=== PATIENT | female | born 1970 | race Caucasian/White ===

== ENCOUNTER 2019-09-11 06:50 | Emergency (ER) | payer OTHER, SELFPAY ==
[2019-09-11] VITALS (38 sets, daily range): BP systolic 142–163; BP diastolic 69–106; PULSE 46–71; RESP 11–62; TEMP 36.6–36.7; O2SAT 98–100
--- NOTE | 2019-09-11 07:18 | W.ED.GENAD ---
Discharge Plan Disposition Patient Disposition: HOME Discharge Details Chief Complaint: Dizzy/Sync Clinical Impression: Vertigo Primary Care Provider: Jones Tirado ED Provider: Satnam Flody Home Meds and New Rx's Prescriptions: New meclizine 25 mg tablet 25 mg PO TID PRN (Reason: dizziness) Qty: 30 RF: 0 Continued ibuprofen [Advil Liqui-Gel] 200 MG capsule 200 - 400 mg PO Q4H PRN RF: 0 paroxetine HCl [Paxil] 20 mg tablet 20 mg PO DAILY Qty: 90 RF: 4 Discharge Instructions Instructions: Vertigo (ED) Additional Instructions: Please drink plenty of fluids to stay hydrated. Please contact your primary care physician to arrange follow-up. Return to the ER for any worsening or new concerning symptoms. Stand Alone Forms: Physical Therapy Referral, Work Release Referrals: Jones Tirado MD [Primary Care Provider] - Discharge Data Discharge Date/Time-TO BE ENTERED AT DEPARTURE: 09/11/19 12:14 Medical Decision Making <Nino Gaston MD - Last Filed: 09/11/19 21:21> Patient presenting with vertigo which sounds positional and likely is but is reporting inability to ambulate and progressively worsening vertigo. Other than gait she has a nonfocal neurologic exam. She is not exhibiting nystagmus. No diplopia with extraocular movement. Blood pressure little elevated but no history of hypertension and likely situational. EKG with nothing acute. Will place IV and give IV Zofran and oral meclizine. Will check basic labs. Will discuss with radiology imaging with MRI given her difficulty with ambulation. ECG Data Attestation: I personally reviewed and interpreted this ECG (s) as follows: Prior ECG tracings: not available for review Interpretation: Normal sinus rhythm at 65. Normal axis and intervals. Normal ST segments. <Satnam Floyd MD - Last Filed: 09/11/19 21:50> 8:00 -- Care signed out by Germain Gaston with plan to follow-up on MRI. 10:20 --MRI of the brain and MRA of the head and neck interpreted by radiology as negative. Labs reviewed and nondiagnostic. 11:50 --patient was given additional dose of meclizine and Shannon maneuver was performed and patient did have improvement in her symptoms. Plan will be for outpatient follow-up with PCP. I will refer to physical therapy for vestibular rehab. Usual and customary discharge instructions were provided. HPI <Nino Gaston MD - Last Filed: 09/11/19 21:21> General Mode of arrival: ambulatory. Date/Time Provider Initiated Documentation: 09/11/19 07:16. Limitations to Documentation: no limitations. Information obtained by: patient and RN notes reviewed. HPI Narrative: Patient presents to ED with complaint of dizziness and inability to ambulate. Patient reports symptoms started maybe 2 days ago and have become progressively worse. Movement definitely makes the dizziness, which she describes as spinning, worse. Initially, if she sat still and looked straight ahead she was okay. Yesterday she was able to walk as long as she did not look at the ground. Now really unable to ambulate. She denies any injury. She denies any fever. She denies headache. She has never had this previously. She did have URI but those symptoms have resolved. She has nausea but no vomiting. She has had no diplopia or vision change. She has no tinnitus or hearing change. She does not feel weak. She does not feel lightheaded like she might pass out. She has some chronic unchanged numbness in the right upper extremity from a pinched nerve. Related Data Home Medications Medication Instructions Recorded Confirmed ibuprofen [Advil Liqui-Gel] 200 - 400 mg PO Q4H PRN tab-cap 02/20/16 09/11/19 paroxetine HCl 20 mg tablet 20 mg PO DAILY #90 tab 03/27/19 09/11/19 meclizine 25 mg PO TID PRN #30 tab 09/11/19 Previous Rx's Medication Instructions Recorded paroxetine HCl 20 mg tablet 20 mg PO DAILY #90 tab 03/27/19 meclizine 25 mg PO TID PRN #30 tab 09/11/19 Allergies Allergy/AdvReac Type Severity Reaction Status Date / Time No Known Drug Allergies Allergy Unverified 09/11/19 07:05 General Stated Complaint: Dizzy/Sync MULUGETA: 3 Review of Systems <Nino Gaston MD - Last Filed: 09/11/19 21:21> Narrative: 05/21 Review of Systems completed and is negative except as stated above in HPI (Systems reviewed: Const, Eyes, ENT, Resp, CV, GI, , MSK, Skin, Neuro) PFSH <Nino Gaston MD - Last Filed: 09/11/19 21:21> Medical History ADD (attention deficit disorder) (Chronic) Anorexia nervosa (Resolved) Bulimia nervosa (Resolved) History of attempted suicide (Resolved) Low back pain (Chronic 01/23/15) Migraine (Chronic) Recurrent major depression (Chronic) includes mood swings/eating disorder/cutting/suicide attempts Surgical History Endometrial Ablation (~2009) Dr Zimmer Ligation of fallopian tube Family History Mother Depression Breast cancer Daughter Depression Daughter ADHD (attention deficit hyperactivity disorder) Maternal Aunt Depression Father Essential hypertension Heart disease Hyperlipidemia Grandmother Breast cancer maternal Maternal Uncle Breast cancer Maternal great uncle Other Family history of breast cancer Social History Smoking/Tobacco Use Status: Current every day Tobacco Type: cigarettes Second Hand Exposure: Yes Alcohol Intake: current Alcohol Intake frequency: 0-2 drinks per day Drug use: Daily Substance use type: former substance user and marijuana Caregiver/Support person: No Household members: significant other and friend(s) Housing: house Pets and animals: Yes Pets and animals: cat(s) Sexually active: Yes Do you think of yourself as: straight/heterosexual Current gender identity: female Duration: decline to answer Frequency: decline to answer Ida/Zoroastrianism: No preference Special ida needs: No Do you feel safe at home: Yes Do you feel safe in your relationship?: Yes Exam <Nino Gaston MD - Last Filed: 09/11/19 21:21> Narrative Exam Narrative: Vitals: Afebrile. Elevated blood pressure. Otherwise normal vital signs and room air pulse oximetry. Const: WDWN female in NAD. HEENT: NC/AT. Normal facial exam. TMs normal bilaterally. Eyes: Normal conjunctiva and sclera. PERRL and EOMI. No nystagmus. Visual gao in tact to confrontation. Neck: Supple. Trachea midline. Lungs: Normal respiratory effort. Lungs are clear. Cor: RRR without murmur/gallop. Good radial pulses. Neuro: A+O x 3. Normal speech, mentation. Unsteady almost lurching gait. Cranial nerves II - XII grossly intact. No gross motor or sensory deficit. Strength equal bilaterally. Sensory intact. Gvjqpq-cd-eoto normal. Lvdw-mx-bdhr normal. Ext: No C/C/E. Skin: Warm and dry without rash. Course <Nino Gaston MD - Last Filed: 09/11/19 21:21> Vital Signs Vital signs: Vital Signs Temperature 98.1 F 09/11/19 06:56 Pulse 65 09/11/19 06:56 Respiratory Rate 62 H 09/11/19 06:56 Blood Pressure 160/86 H 09/11/19 06:56 Pulse Oximetry 100 09/11/19 06:56 Temperature 98.1 F 09/11/19 06:56 Temperature Source Temporal Artery Scan 09/11/19 06:56 Pulse 65 09/11/19 06:56 Respiratory Rate 16 09/11/19 07:06 Respiratory Effort Short of Breath 09/11/19 07:06 Respiratory Depth Normal 09/11/19 07:06 Respiratory Pattern Normal 09/11/19 07:06 Blood Pressure 160/86 H 09/11/19 06:56 Blood Pressure Position Supine 09/11/19 06:56 Pulse Oximetry 100 09/11/19 06:56 Oxygen Delivery Method Room Air 09/11/19 06:56 Oxygen Flow Rate 0 09/11/19 06:56 Pain Level 1 09/11/19 06:56 Sign Out <Nino Gaston MD - Last Filed: 09/11/19 21:21> Sign Out Data: Sign Out Comment: Signed out pending MRI/MRA of brain and neck. Last updated by Nino Gaston MD at 09/11/19 08:14
[2019-09-11 07:49] LABS: HCT 43.5 % (36.0-46.0); HGB 14.5 g/dL (12.0-15.5); Mean Corp. HGB Concentration 33.3 g/dL (32.0-36.0); Mean Corpuscular Hemoglobin 31.9 pg (27.0-33.0); Mean Corpuscular Volume 95.8 fL (80-95); Mean Platelet Volume 10.6 fL (8.0-11.0); Platelet Count 272 x1000/uL (130-400); RBC 4.54 m/cumm (4.00-5.20); RBC Distribution Width 13.1 % (11.7-14.6); White Blood Cell Count 7.04 k/cumm (4.4-10.8)
[2019-09-11] MEDS: Lactated Ringers 1,000 ML 150 ML IV (07:50)
[2019-09-11] MEDS: Ondansetron 4 MG/2 ML VIAL IVP (07:52)
[2019-09-11] MEDS: Meclizine 25 MG TAB PO ×2 (07:53→11:41)
[2019-09-11 07:57] LABS: Anion Gap 8.4 mmol/L (3-11); BUN 15 mg/dL (7-18); CO2 28.6 mmol/L (21.0-32.0); CREATININE 0.81 mg/dL (0.55-1.02); Calcium 9.2 mg/dL (8.5-10.1); Chloride 103 mmol/L (98-107); Glucose 114 mg/dL (74-106); Potassium 4.2 mmol/L (3.5-5.1); Sodium 140 mmol/L (136-145)
--- NOTE | 2019-09-11 09:20 | DI.MRI_ITS ---
EXAM: MR ANGIO NECK WO CLINICAL HISTORY: vertigo/unable to ambulate. TECHNIQUE: Multiplanar multisequence MRI was performed. COMPARISON: No exams were available for comparison FINDINGS: Common carotid arteries: Unremarkable. No evidence of dissection, occlusion or significant stenosis. External carotid arteries: Unremarkable. No evidence of occlusion or significant stenosis. Internal carotid arteries: Unremarkable. No evidence of dissection, occlusion or significant stenosi s. Vertebral arteries: Unremarkable. No evidence of dissection occlusion or significant stenosis. IMPRESSION: Unremarkable MR angiography of the neck.
--- NOTE | 2019-09-11 09:40 | DI.MRI_ITS ---
EXAM: MR BRAIN WO CLINICAL HISTORY: vertigo, unable to ambulate TECHNIQUE: Multiplanar multisequence MRI of the brain was performed. COMPARISON: MR ANGIO BRAIN WO from 09/11/2019 MR ANGIO BRAIN WO from 09/11/2019 FINDINGS: VENTRICLES AND EXTRA AXIAL SPACES: Normal in size and morphology for the patient's age. HEMORRHAGE: None. CEREBRAL PARENCHYMA: No focus of restricted diffusion to suggest acute infarct. No space-occupying le elijah identified. MIDLINE SHIFT: None. BRAINSTEM/CEREBELLUM: Normal. CALVARIUM: Normal. VISUALIZED PARANASAL SINUSES/MASTOIDS: Clear. OTHER FINDINGS: None. IMPRESSION: Unremarkable MRI of the brain.
--- NOTE | 2019-09-11 09:45 | DI.MRI_ITS ---
EXAM: MR ANGIO BRAIN WO CLINICAL HISTORY: vertigo; unable to ambulte. TECHNIQUE: Multiplanar multisequence MRI was performed. COMPARISON: No exams were available for comparison FINDINGS: Internal carotid arteries: Unremarkable. No evidence of aneurysm, occlusion or significant stenosis. Anterior cerebral arteries: Unremarkable. No evidence of aneurysm, occlusion or significant stenosis . Middle cerebral arteries: Unremarkable. No evidence of aneurysm, occlusion or significant stenosis. Posterior cerebral arteries: Unremarkable. No evidence of aneurysm, occlusion or significant stenosi s. Vertebral arteries: Unremarkable. No evidence of aneurysm, occlusion or significant stenosis. Basilar artery: Unremarkable. No evidence of aneurysm, occlusion or significant stenosis. IMPRESSION: Unremarkable MR angiography of the brain.
== END 2019-09-11 12:14 | disposition home or self-care (01) ==
PROVIDERS: Emergency Medicine; Emergency Provider Student in an Organized Health Care Education/Training Program; PCP Family Medicine
DX: R11.2 Nausea with vomiting, unspecified (principal); R26.0 Ataxic gait; R42 Dizziness and giddiness
CPT/HCPCS: 36415; 70544; 70547; 80048; 85027; 93005; 95992; 96361; 96374; 99285; 70551; 93010; J2405

== ENCOUNTER 2019-11-29 00:25 | Outpatient (CLI) | payer OTHER, SELFPAY ==
--- NOTE | 2019-11-29 07:15 | DI.RAD_ITS ---
EXAM: XR TOE LT GREAT CLINICAL HISTORY: Crushing injury to left great toe?work comp injury,s97.112A TECHNIQUE: 2D digital imaging was performed. COMPARISON: No exams were available for comparison FINDINGS: There is a fracture extending transversely through the distal aspect of the great toe. There is onl y slight displacement no significant angulation. There is no extension to the articular surface or e vidence of dislocation. Joint spaces are well maintained. Impression nondisplaced fracture of the distal phalanx of the great toe. IMPRESSION:
== END 2019-11-29 00:45 ==
PROVIDERS: PCP Family Medicine; Visit Provider Family Medicine
DX: S97.112A Crushing injury of left great toe, initial encounter (principal); S92.425A Nondisplaced fracture of distal phalanx of left great toe, initial encounter for closed fracture
CPT/HCPCS: 73660

== ENCOUNTER 2020-09-25 18:36 | Outpatient (REF) | payer BC, SELFPAY | END 2020-09-25 18:37 | disposition home or self-care (01) | LOC: LBN 18:36 | PROVIDERS: PCP Nurse Practitioner; Visit Provider Nurse Practitioner Family | DX: R30.0 Dysuria (principal) | CPT/HCPCS: 87086 ==

== ENCOUNTER → 2022-07-28 01:22 | Outpatient (CLI) | payer BC, SELFPAY ==
--- NOTE | 2022-07-28 13:02 | DI.MAMMO_ITS ---
Exam(s) MAMMO SCREENING EXAM: MAMMO SCREENING CLINICAL HISTORY: screening,z12.39. TECHNIQUE: Bilateral full field digital CC and MLO mammographic images were obtained with 3D tomosyn thesis and utilizing computer aided detection (CAD). COMPARISON: Prior mammogram of 2016. There are no interval mammograms since that date. FINDINGS: There has been no significant change in the appearance and distribution of the fibroglandular tissue. There are no new spiculated masses nor malignant appearing microcalcification groups. There is no significant architectural distortion nor skin thickening-retraction. IMPRESSION: No radiographic evidence of malignancy. BI-RADS Category 1 - Negative Breast Density - Category B - Scattered areas of fibroglandular density Breast density Category C or D implies that the patient has dense breast tissue. Dense breast tissue can make it harder to find cancer on a mammogram. Dense breast tissue is also associated with an incr eased risk of breast cancer. This information about the result of the mammogram report was provided to the patient to raise their awareness. Use this report when you speak with the patient about their risks for breast cancer, which includes their family history. At that time, you may recommend additional screening tests (Ultrasoun d or MRI) as these tests may add significant information. A negative radiographic report should not delay biopsy if a dominant or clinically suspicious mass is present. Up to ten percent of cancers are not identified on mammography. A negative report may reinforce clinical impression. Adenosis and dense breasts may obscure an underlying neoplasm. False positive reports average 6 to 10%. Patient will receive a letter notifying them of these results.
== END ==
PROVIDERS: PCP Nurse Practitioner; Visit Provider Nurse Practitioner Family
DX: Z12.31 Encounter for screening mammogram for malignant neoplasm of breast (principal)
CPT/HCPCS: 77063; 77067

== ENCOUNTER 2022-09-07 15:12 | Outpatient (REF) | payer BC, SELFPAY ==
--- NOTE | 2022-09-07 13:50 | PAPFT_PTH ---
PATIENT: Carolina Machado LOC: [facility] U#:[id number] AGE/SX: 52/F ROOM: RE09/07/[address]: Amy Álvarez NP : 1970 BED: DIS: 09/07/2022 SPEC #: [id number] RECD: 09/07/22 17:53 STATUS: KAITY REVioleta #: [id number] TRINA: 09/07/22 13:[address]: Amy Álvarez NP DEPT: [facility] Cytology RECD BY: Amarilys Mustafa ENTERED: 09/07/22 17:53 SP TYPE: PAPFT OTHR DR: Esperanza Disla NP Tissues: 1 - CX/ENDOCX FOR PAP SMEARS Procedures: PAP THIN PREP/UVM Screening HPV DNA PROBE Comments: [id number]
== END 2022-09-07 15:13 | disposition home or self-care (01) ==
LOC: LBN 15:12
PROVIDERS: PCP Nurse Practitioner Family; Visit Provider Nurse Practitioner Women's Health
DX: Z12.4 Encounter for screening for malignant neoplasm of cervix (principal); Z11.51 Encounter for screening for human papillomavirus (HPV); R87.810 Cervical high risk human papillomavirus (HPV) DNA test positive
CPT/HCPCS: 88142; 87624

== ENCOUNTER 2023-08-26 06:51 | Emergency (ER) | payer OTHER, SELFPAY ==
[2023-08-26 06:56] VITALS: BP 177/77; PULSE 57; RESP 16; O2SAT 100
--- NOTE | 2023-08-26 07:00 | DI.CT_ITS ---
Exam(s) CT HEAD WO EXAM: CT HEAD WO CLINICAL HISTORY: trauma, board to top of head, loc. TECHNIQUE: Imaging Protocol: Axial computed tomography images with coronal and sagittal reformatted images were created and reviewed COMPARISON: MR MR BRAIN WO from 09/11/2019 FINDINGS: There are no skull fractures. There is mild mucosal thickening in maxillary sinuses without fluid lev els. Other paranasal sinuses are clear. There is no evidence of intracranial hemorrhage, mass effect, or shift of midline structures. There are no extra-axial fluid collections. The ventricles are not enlarged or shifted and there is no blo od within the ventricular system nor within the basal cisterns. IMPRESSION: No acute intracranial findings on this noninfused CT scan of the brain. RADIATION DOSE DELIVERED: 737.18mGy.cm Total DLP DATA REPOSITORY: All CT scans at this facility are submitted to the National Radiology Data Registry (NRDR) Dose Index Registry (DIR) with the [employer] (A[employer]). RADIATION OPTIMIZATION: All CT scans at this facility use at least one of these dose optimization te chniques: automated exposure control; mA and/or kV adjustment per patient size (includes targeted exa ms where dose is matched to clinical indication); or iterative reconstruction.
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
[2023-08-26] MEDS: Acetaminophen 325 MG TAB (08:08)
[2023-08-26] MEDS: Ondansetron O.D.T. 4 MG TABEF (08:09)
== END 2023-08-26 08:27 | disposition home or self-care (01) ==
PROVIDERS: Emergency Provider Student in an Organized Health Care Education/Training Program; PCP Nurse Practitioner Family
DX: S06.891A Other specified intracranial injury with loss of consciousness of 30 minutes or less, initial encounter (principal); R11.0 Nausea; F17.210 Nicotine dependence, cigarettes, uncomplicated; W20.8XXA Other cause of strike by thrown, projected or falling object, initial encounter; Y93.89 Activity, other specified; Y92.89 Other specified places as the place of occurrence of the external cause; Y99.0 Civilian activity done for income or pay
CPT/HCPCS: 99284; 70450

== ENCOUNTER → 2024-01-04 20:27 | Outpatient (CLI) | payer OTHER, SELFPAY ==
--- NOTE | 2024-01-04 12:13 | DI.RAD_ITS ---
Exam(s) XR KNEE RT 3V AP,LAT,JONATHAN EXAM: XR KNEE RT 3V AP,LAT,JONATHAN CLINICAL HISTORY: M25.561 pain and swelling RT knee. TECHNIQUE: 2D digital imaging was performed. Three views. COMPARISON: No exams were available for comparison FINDINGS: BONES: No acute fracture is present. No bony destructive lesion is seen. JOINTS: The knee is normally aligned. No joint effusion is seen. Joint spaces are maintained. No sig nificant degenerative changes. SOFT TISSUE: Normal. IMPRESSION: Unremarkable radiographs of the right knee. DATA REPOSITORY: RADIATION DOSE DELIVERED:
== END ==
PROVIDERS: PCP Nurse Practitioner Family; Visit Provider Nurse Practitioner Family
DX: M25.561 Pain in right knee (principal)
CPT/HCPCS: 73562

== ENCOUNTER 2024-08-07 01:49 | Outpatient (CLI) | payer OTHER, SELFPAY ==
--- NOTE | 2024-08-07 14:44 | DI.MAMMO_ITS ---
Exam(s) MAMMO SCREENING EXAM: MAMMO SCREENING CLINICAL HISTORY: screening,Z12.39. TECHNIQUE: Bilateral full field digital CC and MLO mammographic images were obtained with 3D tomosyn thesis and utilizing computer aided detection (CAD). COMPARISON: Prior mammograms were reviewed. FINDINGS: There has been no significant change in the appearance and distribution of the fibroglandular tissue. Small benign-appearing nodule laterally in left breast is unchanged from previous and is probably osmel ign intramammary lymph node. There are no new spiculated masses nor new malignant appearing microcalcification groups. There is no significant architectural distortion nor skin thickening-retraction. IMPRESSION: Benign findings. No radiographic evidence of malignancy. BI-RADS Category 2 - Benign Findings Breast Density - Category B - Scattered areas of fibroglandular density Breast density Category C or D implies that the patient has dense breast tissue. Dense breast tissue can make it harder to find cancer on a mammogram. Dense breast tissue is also associated with an incr eased risk of breast cancer. This information about the result of the mammogram report was provided to the patient to raise their awareness. Use this report when you speak with the patient about their risks for breast cancer, which includes their family history. At that time, you may recommend additional screening tests (Ultrasoun d or MRI) as these tests may add significant information. A negative radiographic report should not delay biopsy if a dominant or clinically suspicious mass is present. Up to ten percent of cancers are not identified on mammography. A negative report may reinforce clinical impression. Adenosis and dense breasts may obscure an underlying neoplasm. False positive reports average 6 to 10%. Patient will receive a letter notifying them of these results.
== END 2024-08-07 02:09 ==
LOC: DI 01:49
PROVIDERS: PCP Nurse Practitioner Family; Visit Provider Nurse Practitioner Family
DX: Z12.31 Encounter for screening mammogram for malignant neoplasm of breast (principal); R92.323 Mammographic fibroglandular density, bilateral breasts; D24.2 Benign neoplasm of left breast
CPT/HCPCS: 77063; 77067

== ENCOUNTER 2024-08-28 13:54 | Outpatient (REF) | payer OTHER, SELFPAY ==
--- NOTE | 2024-08-28 13:45 | PAPFT_PTH ---
PATIENT: Carolina Machado LOC: [facility] U#:[id number] AGE/SX: 54/F ROOM: RE08/28/[address]: Amy Álvarez NP : 1970 BED: DIS: 08/28/2024 SPEC #: [id number] RECD: 08/28/24 17:44 STATUS: KAITY REVioleta #: [id number] TRINA: 08/28/24 13:[address]: Amy Álvarez NP DEPT: [facility] Cytology RECD BY: Amarilys Mustafa ENTERED: 08/28/24 17:44 SP TYPE: PAPFT OTHR DR: Esperanza Disla NP Tissues: 1 - CX/ENDOCX FOR PAP SMEARS Procedures: PAP THIN PREP/[facility] Screening HPV DNA PROBE Comments: [id number] (HPV 16 & 18/45)
== END 2024-08-28 13:55 | disposition home or self-care (01) ==
LOC: LBN 13:54
PROVIDERS: PCP Nurse Practitioner Family; Visit Provider Nurse Practitioner Women's Health
DX: Z11.51 Encounter for screening for human papillomavirus (HPV) (principal); Z01.419 Encounter for gynecological examination (general) (routine) without abnormal findings
CPT/HCPCS: 88142; 87624

== ENCOUNTER 2025-03-06 08:35 | Emergency (ER) | payer OTHER, SELFPAY ==
[2025-03-06 08:35] VITALS: BP 169/62; PULSE 76; RESP 15; TEMP 36.9; O2SAT 100
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
[2025-03-06 09:41] VITALS: BP 151/84; PULSE 75; RESP 16; O2SAT 98
== END 2025-03-06 09:47 | disposition home or self-care (01) ==
PROVIDERS: Emergency Provider Emergency Medicine Emergency Medical Services; PCP Nurse Practitioner Family
DX: S61.412A Laceration without foreign body of left hand, initial encounter (principal); W27.0XXA Contact with workbench tool, initial encounter; Z23 Encounter for immunization; Y99.0 Civilian activity done for income or pay
CPT/HCPCS: 12001